=== PATIENT | male | born 1965 | race Caucasian/White ===

== ENCOUNTER 2024-08-01 09:57 | Outpatient (RCR) | payer BC, SELFPAY ==
--- NOTE | 2024-08-06 08:03 | OPREHPOC ---
Outpatient Therapy Plan of Care This is a Multidisciplinary Plan of Care that may contain components documented by all disciplines (PT, OT, and ST.) PT Problem 1 PT Problem #1 Knowledge Deficit PT Goal 1 Goal / Goal Update independent and compliant with HEP Target Visit 6 PT Problem 2 PT Problem #2 Pain PT Goal 1 Goal / Goal Update decrease pain at worst to 3/10 or less in the L shoulder Target Visit 12 PT Problem 3 PT Problem #3 Impaired Range of Motion PT Goal 1 Goal / Goal Update 160 degrees active L shoulder flex 160 degrees active L shoulder abd 75 degrees active L shoulder ER 75 degrees active L shoulder IR Target Visit 12 PT Problem 4 PT Problem #4 Impaired Strength PT Goal 1 Goal / Goal Update 4+/5 or better L shoulder flex 4+/5 or better L shoulder abd 4+/5 or better L shoulder ER Target Visit 12 PT Problem 5 PT Problem #5 Impaired Functional Mobility PT Goal 1 Goal / Goal Update quick dash to display 20% or less functional deficits patient to easily put on jacket and shirt beginning on either side without pain 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
--- NOTE | 2024-08-06 08:04 | PTOPEVAL1 ---
Assessment and note entered by JT File, PT Evaluation Information Assessment Status Evaluation ICD-10 Condition Codes (PT) Pain in left shoulder M25.512 Subjective Information patient reports he is having pain in the L shoulder. 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 he reports both shoulders were hurting and hard to move for a few weeks afterwards. he reports the R shoulder has gotten better, but the L arm is still bothersome. he reports now he has trouble reaching behind his back with the L arm, putting on a coat or shirt, trouble sleeping through the night, and reaching overhead. he reports it is mostly pain that prevents his mobility. he reports this is a result of a pulling injury to the L shoulder. he reports he does have burning in the L shoulder when holding in one position and with increased use. he reports he is on his last day of a 6 day dose pack. Reported Pain Level Pain Score 7: Self Report Assessment PT Clinical Summary mr. nova is a 59 yo man who presents to skilled PT services for evaluation and treatment of L shoulder pain. 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 he presents today with signs and symptoms of a biceps/rtc tendonitis and adhesive capsulitis. he displays decreased active and passive rom, mm weakness, pain, and deficits in functional reaching with the L UE. continued skilled PT is indicated to improve his objective/functional deficits and progress towards a return to his prior level functional activity performance/quality of life. Plan of Care Interventions Electrical Stimulation,Hot Pack/Cold Pack,Manual Therapy,Neuro Re-education,Therapeutic Activities, Therapeutic Exercise PT Services Indicated Yes Treatment Frequency and 3x weekly for 12 visits Duration These treatments will address the objective and functional deficits as defined above. The patient will be advanced safely and appropriately in order for the patient to progress towards his/her prior level of function. Additional exercises will be introduced and as well as a comprehensive home exercise program upon discharge, if needed, ?to ensure carryover of functional gains achieved in the clinic. This treatment plan has been reviewed and agreement upon by the patient.
--- NOTE | 2024-08-27 08:43 | PTOPPROGNS ---
Assessment and note entered by JT File, PT Evaluation Information Assessment Status Progress ICD-10 Condition Codes (PT) Pain in left shoulder M25.512 Onset 07/30/24 Subjective Information Pt reports he feels all alright. Pt reports that he sprayed on his tractor yesterday and he feels a little sore from driving with the L arm. Pt reports that he still has trouble reaching behind the back and taking off his sweatshirt with his left arm. 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 Assessment PT Clinical Summary Mr. Fernandez is on his 10th skilled PT visit. The pt still presents with restricted ROM and strength of the L shoulder. PROM of the L shoulder flexion has increased, but all other motions are similar to original measurements. Pt reports on the Quick DASH a similar score with no change. Progressed strengthening exercises to work towards functional goals within pts comfort. Skilled PT is needed to continue working on functional mobility and strength for ADLs, improve quality of life, and to reach objective measures/pt goals. Plan of Care Interventions Electrical Stimulation,Hot Pack/Cold Pack,Manual Therapy,Neuro Re-education,Therapeutic Activities, Therapeutic Exercise PT Services Indicated Yes Treatment Frequency and continue per initial POC Duration These treatments will address the objective and functional deficits as defined above. The patient will be advanced safely and appropriately in order for the patient to progress towards his/her prior level of function. Additional exercises will be introduced and as well as a comprehensive home exercise program upon discharge, if needed, ?to ensure carryover of functional gains achieved in the clinic. This treatment plan has been reviewed and agreement upon by the patient.
--- NOTE | 2024-08-30 10:00 | PCPTNOTE ---
On 08/30/24, the student, [King Hernandez], provided care and completed [facility] documentation on this patient. I have reviewed the student's documentation and agree with the findings.
--- NOTE | 2024-08-30 10:10 | OPREHPOC ---
Outpatient Therapy Plan of Care This is a Multidisciplinary Plan of Care that may contain components documented by all disciplines (PT, OT, and ST.) PT Problem 1 PT Problem #1 Knowledge Deficit PT Goal 1 Goal / Goal Update independent and compliant with HEP Target Visit 6 Progress Not Met PT Problem 2 PT Problem #2 Pain PT Goal 1 Goal / Goal Update decrease pain at worst to 3/10 or less in the L shoulder Target Visit 12 Progress Not Met PT Problem 3 PT Problem #3 Impaired Range of Motion PT Goal 1 Goal / Goal Update 160 degrees active L shoulder flex 160 degrees active L shoulder abd 75 degrees active L shoulder ER 75 degrees active L shoulder IR Target Visit 12 Progress Not Met PT Problem 4 PT Problem #4 Impaired Strength PT Goal 1 Goal / Goal Update 4+/5 or better L shoulder flex -met 4+/5 or better L shoulder abd 4+/5 or better L shoulder ER Target Visit 12 PT Problem 5 PT Problem #5 Impaired Functional Mobility PT Goal 1 Goal / Goal Update quick dash to display 20% or less functional deficits patient to easily put on jacket and shirt beginning on either side without pain 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
--- NOTE | 2024-08-30 10:10 | PTOPREEVAL ---
Assessment and note entered by JT File, PT Evaluation Information Assessment Status Re-evaluation ICD-10 Condition Codes (PT) Pain in left shoulder M25.512 Onset 07/30/24 Subjective Information Pt reports that he has pain today in the side and back of his upper arm. Pt also reports that he had to throw his arms to get his mom to stop her car, which increased his pain. Pt reports that he is now able to sleep on his L side. Pt states that he still has trouble reaching up from the side. Reported Pain Level Pain Score 4: Self Report Assessment PT Clinical Summary Mr. Fernandez completed his 12th skilled PT visit today. He has not met his goals, and still has deficits in ROM/ strength in the L shoulder. Shoulder special test and pts symptoms are consistent with biceps/RC tendonitis and adhesive capsulitis in the L shoulder. Pt to hold on skilled PT and continue his HEP until he has a follow up with his doctor. Plan of Care Interventions Electrical Stimulation,Hot Pack/Cold Pack,Manual Therapy,Neuro Re-education,Therapeutic Activities, Therapeutic Exercise PT Services Indicated Yes Treatment Frequency and Hold skilled PT until pt goes to doctor Duration These treatments will address the objective and functional deficits as defined above. The patient will be advanced safely and appropriately in order for the patient to progress towards his/her prior level of function. Additional exercises will be introduced and as well as a comprehensive home exercise program upon discharge, if needed, ?to ensure carryover of functional gains achieved in the clinic. This treatment plan has been reviewed and agreement upon by the patient.
== END 2024-10-30 23:59 | disposition home or self-care (01) ==
LOC: CHSPT 09:57
PROVIDERS: Visit Provider Family Medicine
DX: M25.512 Pain in left shoulder (principal)
CPT/HCPCS: 97014; 97110; 97112; 97140; 97161; 97750; G0283